=== PATIENT | female | born 1975 | race Two or more races ===

== ENCOUNTER 2016-12-07 01:52 | Emergency (ER) | payer SELFPAY ==
[~2016-12-07 01:52] MED LIST: NO MEDICATIONS
[2016-12-07 01:58] LABS: INFLUENZA A NEG (NEG); INFLUENZA B NEG (NEG)
== END 2016-12-07 02:28 | disposition home or self-care (01) ==
LOC: SED 01:52
PROVIDERS: Nurse Practitioner
DX: J02.9 Acute pharyngitis, unspecified (principal)
CPT/HCPCS: 87651; 87804; 99282